=== PATIENT | female | born 1975 | race Caucasian/White ===

== ENCOUNTER 2020-02-16 01:06 | Outpatient (CLI) | payer MEDICAID, SELFPAY ==
--- NOTE | 2020-02-16 | DI.MRI_ITS ---
EXAM: MR LOWER JOINT RT WO CLINICAL HISTORY: PAIN OF MENISCUS RT KNEE,M25.561 TECHNIQUE: Multiplanar multisequence MRI of the knee was performed. COMPARISON: No exams were available for comparison FINDINGS: EFFUSION: There is no evidence of joint effusion or Soria cyst in the popliteal fossa. MARROW:There is no evidence of fracture, bone contusion, nor osteochondral defects.. There is a tiny degenerative subarticular cyst in the the tibial plateau measuring 3 x 2 millimeters. PATELLOFEMORAL COMPARTMENT: The quadriceps tendon is intact. There is some deep subcutaneous edema a nterior to the lower patellar ligament but no evidence patellar ligament tear. No abnormal intraosse ous signal at the anterior tibial tubercle level. There is very slight irregularity of the retropatellar cartilage surface but without significant thin erica. No fissure. No osteochondral defect. There is, however, tiny subarticular cyst in the anteri or aspect of the medial femoral condyle at this level. No intraosseous signal abnormality within the patella.There is no intraosseous signal to suggest recent patellar dislocation. There are no patella r retinacular tears. CRUCIATE LIGAMENTS: The anterior cruciate ligament is intact.The posterior cruciate ligament is intac t. MEDIAL COMPARTMENT/MEDIAL MENISCUS: There are no tears of the medial meniscus evident.Grade 1-2 signa l in the posterior horn but no true tear.. There are no chondral defects, osteochondral defects, subarticular marrow edema, nor osteophytes evid ent. MEDIAL COLLATERAL LIGAMENT: Intact LATERAL COMPARTMENT/LATERAL MENISCUS: There is no evidence of lateral meniscal tear.There are no stanley dral defects, osteochondral defects, subarticular marrow edema, nor osteophytes evident. ILIOTIBIAL BAND: Intact LATERAL COLLATERAL LIGAMENT COMPLEX: The fibular collateral ligament is intact. The biceps femoris t endon is intact.Popliteus muscle and tendon are intact. IMPRESSION: 1. Mild myxoid degeneration in the posterior horn of the medial meniscus but no meniscal tear is evid ent. 2. There are no cruciate or collateral ligament tears. The iliotibial band is also intact. 3. Is very subtle signal abnormality in the surface of the retropatellar cartilage. The cartilage it self is not thinned. There is a tiny degenerative subarticular cyst in the anterior aspect of the me dial femoral condyle. Remainder of the patellofemoral compartment is unremarkable although there styles s appear to be some edema in the deep subcutaneous fat anterior to the lower most aspect of the guillen lar ligament. The patellar ligament itself is intact. 4. Minimal findings significant degenerative changes in the medial and lateral compartments.. 5. There is no joint effusion. DATA REPOSITORY:
== END 2020-02-16 01:26 ==
PROVIDERS: PCP Family Medicine; Visit Provider Family Medicine
DX: M25.561 Pain in right knee (principal); M25.861 Other specified joint disorders, right knee
CPT/HCPCS: 73721

== ENCOUNTER → 2022-11-11 00:12 | Outpatient (CLI) | payer MEDICAID, SELFPAY ==
--- NOTE | 2022-11-11 | DI.MRI_ITS ---
Exam(s) MR LOWER JOINT RT WO EXAM: MR LOWER JOINT RT WO CLINICAL HISTORY: PAIN RT KNEE M25.561. TECHNIQUE: Multiplanar multisequence MRI was performed. COMPARISON: MR MR LOWER JOINT RT WO from 02/16/2020 FINDINGS: BONES: There is no fracture or contusion pattern. Tiny cyst near the tibial spines. Tiny high signal lesion anterior aspect of medial femoral condyle. JOINTS: Minimal joint effusion is present. Articular cartilage: Patellofemoral joint: Small area of irregularity of the superficial patellar ape x. Medial femoral tibial joint: Articular cartilage is unremarkable. Lateral femoral tibial joint: Articular cartilage is unremarkable. TENDONS: Extensor mechanism: Unremarkable. Medial retinaculum: Unremarkable. Lateral retinaculum: Unremarkable. Popliteus: Unremarkable. MUSCLES: Unremarkable. MENISCI: The medial meniscus shows degenerative signal changes in the anterior horn without focal def ect. There is an adjacent cluster of tiny cysts together measuring 10 millimeters.. The lateral men iscus is unremarkable. SOFT TISSUES: Venous varicosities. LIGAMENTS: Anterior Cruciate: Unremarkable. Posterior Cruciate: Unremarkable. Medial Collateral:Unremarkable. Lateral Collateral: Unremarkable. OTHER: IMPRESSION: Degenerative changes of the anterior horn of the medial meniscus with adjacent meniscal cysts. No di screte tear. Mild chondromalacia at the apex of the patella. Stable tiny high signal subcortical lesion in the an teromedial femoral condyle. DATA REPOSITORY:
== END ==
PROVIDERS: PCP Family Medicine; Visit Provider Family Medicine
DX: M23.311 Other meniscus derangements, anterior horn of medial meniscus, right knee (principal); M22.41 Chondromalacia patellae, right knee
CPT/HCPCS: 73721

== ENCOUNTER 2022-11-17 10:16 | Outpatient (CLI) | payer MEDICAID, SELFPAY ==
--- NOTE | 2022-11-17 10:12 | DI.RAD_ITS ---
Exam(s) XR KNEE RT 3V AP,LAT,PK EXAM: XR KNEE RT 3V AP,LAT,PK CLINICAL HISTORY: knee pain. TECHNIQUE: 2D digital imaging was performed. Three views. COMPARISON: No exams were available for comparison FINDINGS: BONES: No acute fracture is present. No bony destructive lesion is seen. JOINTS: The joint spaces are maintained. The knee is normally aligned. No joint effusion is seen. SOFT TISSUE: Normal. IMPRESSION: Unremarkable radiographs of the right knee. DATA REPOSITORY: RADIATION DOSE DELIVERED:
== END 2022-11-17 10:17 | disposition home or self-care (01) ==
LOC: DIORS 10:16
PROVIDERS: PCP Family Medicine; Visit Provider Physician Assistant
DX: M25.561 Pain in right knee (principal)
CPT/HCPCS: 73562

== ENCOUNTER 2022-11-25 11:35 | Emergency (ER) | payer MEDICAID, SELFPAY ==
[2022-11-25 11:38] VITALS: BP 171/81; PULSE 86; RESP 16; TEMP 36.5; O2SAT 100
--- NOTE | 2022-11-25 12:15 | W.ED.GENAD ---
Discharge Plan Disposition Patient Disposition: Home Condition: Improving Discharge Details Chief Complaint: Orthopedic Clinical Impression: Chronic knee pain Primary Care Provider: Benson Membreno ED Provider: Benson Romano Home Meds and New Rx's Prescriptions: No Action lisinopril 10 mg tablet 10 mg PO DAILY Discharge Instructions Instructions: Knee Pain (ED) Additional Instructions: Please follow-up closely with orthopedic surgery. Keep your appointment for spinal MRI. Return to the emergency department for any worsening symptoms Medical Decision Making 47-year-old female presents with acute on chronic atraumatic right knee pain that has been persistent daily for the last couple of months, had a negative right knee MRI, recent evaluation by orthopedic surgery included negative x-ray of right knee and improvement of the discomfort after intra-articular injection, afebrile nontoxic full strength and sensation lower extremities full range of motion in joints of lower extremity specifically the knee, no laxity, no induration or erythema, no appreciable effusion. Patient denies bowel or bladder dysfunction denies fevers falls immobilization exogenous estrogen use or history of thromboembolic disease. Consider meniscal injury chronic versus IT band syndrome versus referred discomfort from lumbar radiculopathy low suspicion for spinal cord compression septic joint or traumatic dislocation or fracture. Trial of analgesia anti-inflammatory. Will encourage close follow-up with orthopedic team. Patient is scheduled for lower spine MRI at the end of this month. Home care instructions and return precautions given HPI General Date/Time Provider Initiated Documentation: 11/25/22 11:39. HPI Narrative: 47-year-old female presents with atraumatic knee pain over the past couple of months, recently evaluated by orthopedic surgery, received intra-articular injection with initial relief of discomfort approximately 1 week ago, presents with recurrent lateral right knee discomfort; denies fevers chills redness or sweating. No exogenous estrogen use, no recent travel no history of thromboembolic disease Related Data Home Medications Medication Instructions Recorded Confirmed lisinopril 10 mg tablet 10 mg PO DAILY 09/25/21 11/17/22 Allergies Allergy/AdvReac Type Severity Reaction Status Date / Time No Known Allergies Allergy Unverified 11/17/22 09:26 General Stated Complaint: Orthopedic MINI: 4 Review of Systems Narrative: Review of Systems Constitutional: negative Eyes: negative ENT: negative Cardiovascular: negative Respiratory: negative Gastrointestinal: negative : negative Musculoskeletal: Knee pain Skin: negative Neurologic: negative Psych: negative PFSH All Active Problems (Updated 11/25/22 @ 12:19 by Benson Romano MD) Chronic knee pain (Acute) Internal derangement of right knee (Acute) Steroid injection: 11/17/2022 Polyp at cervical os (Acute) 09/2021. Broad base. Rx with Silver Nitrate. Obesity (Chronic) 09/2021. BMI 38. Abnormal uterine bleeding (AUB) (Acute) heavy regular menses. 09/2021 Rx with Depo. HTN (hypertension) (Chronic) Cubital tunnel syndrome on right (Acute) Family History (Updated 09/25/21 @ 12:02 by Layla Whittaker MD) Other Colon polyps Social History (Updated 09/25/21 @ 11:55 by Layla Whittaker MD) Smoking/Tobacco Use Status: Never Second Hand Exposure: No Smoking risk assessment performed?: Yes Alcohol Intake: never Drug use: Never Substance use type: does not use Household members: spouse, family and other Details: oldest son is freshman in college this year. 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 Pets and animals: Yes (nye) Current gender identity: female What is your relationship status?: Panel score (0-1 are the most socially isolated patients): 1 Seatbelt use: always Do you feel safe at home: Yes Do you feel safe in your relationship?: Yes Female Reproductive History Menstrual Duration of menses: 3-5 days control method: progesterone injection (09/2021. Rx for AUB.) History History 6 Para 4 Hx # Term Pregnancies 4 Multiple births Hx # Pregnancies Ectopic pregnancies AB induced Hx Number of Living Children 4 AB spontaneous 2 Exam Narrative Exam Narrative: Physical Examination General: alert, awake, cooperative, resting comfortably, no acute distress Skin: no lesions, rashes or trauma appreciated Neuro: AAOx3, normal speech, moving all extremities; 5-5 strength upper and lower extremities bilaterally Extremities: Full range of motion flexion extension of knee, no laxity, no effusion no induration no erythema, no crepitus or deformity, range of motion of hip ankle and foot also intact, sensation intact warm well perfused, ambulatory without assistance Psych: Appropriate mood and affect Course Vital Signs Vital signs: Vital Signs Temperature 36.5 C 11/25/22 11:38 Pulse 86 10/17/23 11:38 Respiratory Rate 16 11/25/22 11:38 Blood Pressure 171/81 H 11/25/22 11:38 Pulse Oximetry 100 11/25/22 11:38 Temperature 36.5 C 11/25/22 11:38 Temperature Source Tympanic 11/25/22 11:38 Pulse 86 11/25/22 11:38 Respiratory Rate 16 11/25/22 11:38 Respiratory Effort Normal 11/25/22 11:41 Blood Pressure 171/81 H 11/25/22 11:38 Blood Pressure Position Sitting 11/25/22 11:38 Pulse Oximetry 100 11/25/22 11:38 Oxygen Delivery Method Room Air 11/25/22 11:38 Oxygen Flow Rate 0 11/25/22 11:38 Pain Level 8 11/25/22 11:38 Comment Pain only when standing on the leg 11/25/22 11:38
[2022-11-25] MEDS: Ketorolac 15 MG/ML VIAL IM (12:32)
[2022-11-25] MEDS: Dexamethasone 10 MG/ML VIAL PO (12:32)
== END 2022-11-25 12:37 | disposition home or self-care (01) ==
PROVIDERS: Emergency Provider Emergency Medicine; PCP Family Medicine
DX: M25.561 Pain in right knee (principal)
CPT/HCPCS: 96372; 99283; J1100; J1885

== ENCOUNTER 2022-11-26 19:33 | Emergency (ER) | payer MEDICAID, SELFPAY ==
[2022-11-26 19:35] VITALS: BP 151/92; PULSE 82; RESP 16; TEMP 37.2; O2SAT 99
--- NOTE | 2022-11-26 19:45 | DI.RAD_ITS ---
Exam(s) XR KNEE RT 3V AP,LAT,PK EXAM: XR KNEE RT 3V AP,LAT,PK CLINICAL HISTORY: pop, pain. TECHNIQUE: 2D digital imaging was performed of the right knee. Three views obtained. AP, lateral an d PA tunnel views were obtained. COMPARISON: CR XR KNEE RT 3V AP,LAT,PK from 11/17/2022 FINDINGS: BONES: No acute fracture is present. No bony destructive lesion is seen. JOINTS: The knee is normally aligned. No joint effusion is seen. SOFT TISSUE: Normal. IMPRESSION: Unremarkable radiographs of the right knee. DATA REPOSITORY: RADIATION DOSE DELIVERED:
--- NOTE | 2022-11-26 19:53 | ED.GENADUL_ITS ---
Discharge Plan Disposition Patient Disposition: Home Condition: Stable Discharge Details Clinical Impression: Chronic knee pain Primary Care Provider: Benson Membreno ED Provider: Jacqueline Srivastava Home Meds and New Rx's Prescriptions: Continued lisinopril 10 mg tablet 10 mg PO DAILY celecoxib [Celebrex] 200 mg capsule 200 mg PO BID Discharge Instructions Instructions: Chronic Pain (ED) Additional Instructions: Ruben wrap for comfort can use heat or ice to affected area crutches for toe touch weight bearing add acetaminophen to pain regimen as directed Referrals: ORTHOPAEDICS,[facility] [OTHER] - Medical Decision Making Patient presents with an exacerbation of ongoing pain that she has been evaluated for including MRI and intra-articular injection. There is no new trauma. But she did feel a pop. There is no bruising erythema she has full range of motion to her knee. No obvious deformity I really do not think an x- ray will be helpful at this point but will repeat. Will apply Ruben wrap give crutches for crutch use for toe-touch weightbearing as tolerated only should continue her medications we have given her acetaminophen at 1000 mg which she can add to her pain regimen. Medical Records Medical records reviewed: Yes I reviewed the patient's medical records. Imaging Data Radiologic Study: Imaging: X-Ray My impression: no obvious bony abnormality HPI General Mode of arrival: ambulatory . Date/Time Provider Initiated Documentation: 11/26/22 19:43 . Limitations to Documentation: no limitations . Information obtained by: patient . HPI Narrative: This is a 47-year-old patient who presents to the emergency department for evaluation of an exacerbation of chronic right knee pain. In brief she has been seen by orthopedics she has had intra articular injection she has had MRIs she has had imaging. She is awaiting spine imaging. She was seen yesterday and started on oral steroids. Today she reports she felt a pop with increased pain and states she was walking around more than she should have been probably. Related Data Home Medications Medication Instructions Recorded Confirmed lisinopril 10 mg tablet 10 mg PO DAILY 09/25/21 11/26/22 celecoxib 200 mg capsule (Celebrex) 200 mg PO BID 11/26/22 11/26/22 Allergies Allergy/AdvReac Type Severity Reaction Status Date / Time No Known Allergies Allergy Unverified 11/26/22 20:04 General Stated Complaint: Orthopedic MINI: 4 Review of Systems All systems reviewed & are unremarkable except as noted in HPI and below PFSH All Active Problems (Updated 11/26/22 @ 19:59 by Jacqueline Srivastava NP) Chronic knee pain (Acute) Internal derangement of right knee (Acute) Steroid injection: 11/17/2022 Polyp at cervical os (Acute) 09/2021. Broad base. Rx with Silver Nitrate. Obesity (Chronic) 09/2021. BMI 38. Abnormal uterine bleeding (AUB) (Acute) heavy regular menses. 09/2021 Rx with Depo. HTN (hypertension) (Chronic) Cubital tunnel syndrome on right (Acute) Family History (Updated 09/25/21 @ 12:02 by Layla Whittaker MD) Other Colon polyps Social History (Updated 09/25/21 @ 11:55 by Layla Whittaker MD) Smoking/Tobacco Use Status: Never Second Hand Exposure: No Smoking risk assessment performed?: Yes Alcohol Intake: never Drug use: Never Substance use type: does not use Household members: spouse, family and other Details: oldest son is freshman in college this year. 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 Pets and animals: Yes (nye) Current gender identity: female What is your relationship status?: Panel score (0-1 are the most socially isolated patients): 1 Seatbelt use: always Do you feel safe at home: Yes Do you feel safe in your relationship?: Yes Female Reproductive History Menstrual Duration of menses: 3-5 days control method: progesterone injection (09/2021. Rx for AUB.) History History 6 Para 4 Hx # Term Pregnancies 4 Multiple births Hx # Pregnancies Ectopic pregnancies AB induced Hx Number of Living Children 4 AB spontaneous 2 Exam Const General: cooperative, healthy appearing, comfortable and no acute distress Nutritional Appearance: overweight Orientation: alert, awake and oriented x3 HENMT Head: normal to inspection, normocephalic and atraumatic Mouth: oral mucosae normal Chest Chest: normal inspection of the chest Resp Effort & Inspection: normal respiratory effort Cardio Rate: regular rate Rhythm: regular rhythm Skin General skin exam: no rashes or lesions noted and no ecchymosis Neuro General: patient alert, patient awake and patient oriented x3 Extrem General: normal to inspection Right lower extremity: knee Details: normal to inspection and tenderness Location: of the patella, of the popliteal fossa and of the lateral joint line; no abrasions, no lacerations, no ecchymosis, no crepitus, no deformity and no unusual warmth Psych Appearance: grossly normal Mental Status: mental status grossly normal Speech and Movement: speech and movement normal Mood: congruent mood Affect: normal affect Course Vital Signs Vital signs: Vital Signs Temperature 37.2 C 11/26/22 19:35 Pulse 82 11/26/22 19:35 Respiratory Rate 16 11/26/22 19:35 Blood Pressure 151/92 H 11/26/22 19:35 Pulse Oximetry 99 11/26/22 19:35 Temperature 37.2 C 11/26/22 19:35 Temperature Source Temporal Artery Scan 11/26/22 19:35 Pulse 82 11/26/22 19:35 Respiratory Rate 16 11/26/22 19:35 Respiratory Effort Normal, Non-Labored 11/26/22 19:39 Blood Pressure 151/92 H 11/26/22 19:35 Blood Pressure Position Sitting 11/26/22 19:35 Pulse Oximetry 99 11/26/22 19:35 Oxygen Delivery Method Room Air 11/26/22 19:35 Oxygen Flow Rate 0 11/26/22 19:35 Pain Level 4 11/26/22 19:35
[2022-11-26] MEDS: Acetaminophen 500 MG TAB 1000 MG PO (20:00)
--- NOTE | 2022-11-26 20:39 | DI.VRAD_ITS ---
PROCEDURE INFORMATION: Exam: XR Right Knee Exam date and time: 11/26/2022 7:57 PM Age: 47 years old Clinical indication: Other: Pop pain TECHNIQUE: Imaging protocol: Radiologic exam of the right knee. Views: 3 views. COMPARISON: CR XR KNEE RT 3V AP,LAT,PK 11/17/2022 10:25 AM FINDINGS: Bones/joints: No fracture or dislocation. No joint space collection seen. Soft tissues: Soft tissues are unremarkable. IMPRESSION: No acute findings. Dictated and Authenticated by: Nerissa Lake MD. Ordering:ENRIKE Phillips MD
--- NOTE | 2022-11-29 14:59 | NUR.NOTE ---
Accessed Pt chart to complete the [facility] document.
== END 2022-11-26 20:16 | disposition home or self-care (01) ==
PROVIDERS: Emergency Provider Nurse Practitioner Acute Care; PCP Family Medicine
DX: M25.561 Pain in right knee (principal); G89.29 Other chronic pain
CPT/HCPCS: 73562; 99283

== ENCOUNTER 2022-11-28 01:27 | Outpatient (CLI) | payer MEDICAID, SELFPAY ==
--- NOTE | 2022-11-28 | DI.MRI_ITS ---
Exam(s) MR LUMBAR SPINE WO EXAM: MR LUMBAR SPINE WO CLINICAL HISTORY: RADICULAR PAIN RT LOWER EXT, M54.10. TECHNIQUE: Multiplanar multisequence MRI of the Lumbar spine was performed. COMPARISON: No exams were available for comparison FINDINGS: Five lumbar vertebrae are presumed. Conus medullaris is at normal level. There is no evidence of conus mass nor subjacent clumping of in trathecal nerve roots to suggest arachnoiditis. The distal thecal sac appears unremarkable.There is a small Tarlov intra sacral cyst noted right of center at the S2 level. Bones:There are no fractures nor ominous osseous lesions in the lumbar vertebral bodies and visualize d sacrum. There is a benign-appearing bone lesion in the L3 vertebral body which is probably an atyp ical appearing intraosseous hemangioma With respect to the individual levels... T12-L1: Unremarkable L1-2: Normal disc height and signal. No disc herniation nor central canal stenosis.No foraminal steno sis L2-3: Normal disc height. No disc herniation nor central canal stenosis.No foraminal stenosis.No face t arthropathy. L3-4: Normal disc height. No disc herniation or central canal stenosis.No foraminal stenosis.No face t arthropathy. L4-5: Normal disc height. There are Modic type 2 sub endplate fatty marrow changes both sides of the disc space right of center. There is a central subligamentous annular bulging which extends posteri areli 3 mm and is 1.5 cm wide. This indents the anterior aspect of the thecal sac resulting in mild c entral canal stenosis. Annular bulging does not extend into the exiting neural foraminae, and there is no evidence of foraminal stenosis on either side. Facet joints appear unremarkable. L5-S1: Normal disc height. Posteriorly there is a small focus of signal abnormality in the central a nnulus consistent with tiny annular tear. At this level there is a small focal annular bulge-subliga mentous. No central canal stenosis. No foraminal stenosis. No facet arthropathy. Soft tissues: paraspinal soft tissues appear unremarkable. IMPRESSION: 1. At L4-5 level there is central subligamentous annular bulging as described above which indents the anterior thecal sac resulting in mild central canal stenosis. This does not extend into the exiting neural foraminae, and there is no foraminal stenosis on either side at this level. 2. Milder findings at L5-S1 level as described above, not associated with canal stenosis. Also no fo raminal stenosis at L5-S1. 3. Benign-appearing nonexpansile bone lesion at the mid aspect of L3 vertebral body which is probably a less than typical appearing intraosseous hemangioma. DATA REPOSITORY:
== END 2022-11-28 01:47 ==
LOC: DI 01:27
PROVIDERS: PCP Family Medicine; Visit Provider Family Medicine
DX: M48.02 Spinal stenosis, cervical region (principal); M99.63 Osseous and subluxation stenosis of intervertebral foramina of lumbar region; M51.37 Other intervertebral disc degeneration, lumbosacral region
CPT/HCPCS: 72148

== ENCOUNTER 2024-02-25 11:55 | Outpatient (REF) | payer MEDICAID, SELFPAY ==
--- NOTE | 2024-02-25 11:45 | ENDOMET_PTH ---
PATIENT: Nerissa Hearn LOC: [facility], [place] U#:[id number] AGE/SX: 48/F ROOM: RE02/25/[address]: Layla Whittaker : 1975 BED: DIS: 02/25/2024 SPEC #: [id number] RECD: 02/25/24 17:09 STATUS: ROMEL REQ #: [id number] TRIPP: 02/25/24 11:[address]: Layla Whittaker DEPT: Surgical Specimen RECD BY: Blanca Escudero ENTERED: 02/25/24 17:09 SP TYPE: Endomet OTHR DR: Benson Membreno Tissues: 1 - ENDOMETRIUM BX/ANASTACIOETTE Procedures: GROSS AND MICRO LEVEL 4 Comments: [id number]
== END 2024-02-25 11:56 | disposition home or self-care (01) ==
LOC: LBN 11:55
PROVIDERS: PCP Family Medicine; Visit Provider Obstetrics & Gynecology Gynecology
DX: N93.9 Abnormal uterine and vaginal bleeding, unspecified (principal); N85.8 Other specified noninflammatory disorders of uterus
CPT/HCPCS: 88305

== ENCOUNTER 2024-04-05 13:55 | Outpatient (CLI) | payer MEDICAID, SELFPAY ==
--- NOTE | 2024-04-05 15:12 | DI.RAD_ITS ---
Exam(s) XR ANKLE RT COMPLETE EXAM: XR ANKLE RT COMPLETE CLINICAL HISTORY: HEEL PAIN, M79.672,? DISTAL CALCANEUS BONE SPUR. TECHNIQUE: 2D digital imaging was performed. Three views. COMPARISON: No exams were available for comparison FINDINGS: BONES: No acute fracture is present. No bony destructive lesion is seen. Tiny enthesophyte at the Achilles insertion on the calcaneus JOINTS: The ankle mortise is normally aligned. SOFT TISSUE: Normal. IMPRESSION: Tiny calcaneal enthesophyte DATA REPOSITORY: RADIATION DOSE DELIVERED:
--- NOTE | 2024-04-05 15:14 | DI.RAD_ITS ---
Exam(s) XR HIP RT COMPLETE AP PELVIS EXAM: XR HIP RT COMPLETE AP PELVIS CLINICAL HISTORY: RT HIP PAIN, M25.551. TECHNIQUE: 2D digital imaging was performed. Two views COMPARISON: No exams were available for comparison FINDINGS: BONES: No acute fracture is present. No bony destructive lesion is seen. JOINTS: No dislocation present. The hip joint spaces are maintained. No significant degenerative c hanges. The SI joints are unremarkable. SOFT TISSUE: Normal. IMPRESSION: No acute abnormality. DATA REPOSITORY: RADIATION DOSE DELIVERED:
== END 2024-04-05 14:15 ==
LOC: DI 13:56
PROVIDERS: PCP Family Medicine; Visit Provider Family Medicine
DX: M25.551 Pain in right hip (principal); M77.31 Calcaneal spur, right foot
CPT/HCPCS: 73502; 73610

== ENCOUNTER 2025-01-23 11:00 | Outpatient (CLI) | payer MEDICAID, SELFPAY | END 2025-01-23 11:01 | disposition home or self-care (01) | LOC: LBO 11:01 | PROVIDERS: PCP Family Medicine; Visit Provider Family Medicine | DX: D69.6 Thrombocytopenia, unspecified (principal) | CPT/HCPCS: 36415 ==